=== PATIENT | female | born 1990 | race Caucasian/White ===

== ENCOUNTER 2017-02-19 11:03 | Inpatient (IN) | payer OTHER ==
[2017-02-19 12:55] VITALS: BMI 25.9
--- NOTE | 2017-02-19 17:07 | HP ---
COWS - Scale Resting Pulse: 1= [place] 81-100 Sweatin= Chills/Flushing Restless Observation: 3= Extraneous Movement Pupil Size: 0= Normal to Room Light Bone or Joint Aches: 2= Severe Diffuse Aches Runny Nose/ Eye Tearin= Runny Nose/Eyes GI Upset > 30mins: 2= Nausea/Diarrhea Tremor Observation: 2= Slight Tremor Visible Yawning Observation: 0= None Anxiety or Irritability: 2=Irritable/Anxious Goose Flesh Skin: 0=Smooth Skin COWS Score: 15 Admission [facility] Chief Complaint: WITHDRAWAL SX Allergies/Adverse Reactions: Allergies Allergy/AdvReac Type Severity Reaction Status Date / Time No Known Allergies Allergy Verified 02/19/17 15:58 History of Present Illness: 26 YEARS OLD FEMALE WITH LONG HISTORY OF HEROIN NICOTINE DEPENDENCE DENIES MEDICAL ISSUE HAS DEPRESSION IS ADMITTED TO DETOX Exam Limitations: No Limitations - Ebola screening Have you traveled outside of the country in the last 21 days: No Have you had contact with anyone from an Ebola affected area: No Have you been sick,other than usual withdrawal symptoms: No Do you have a fever: No - Review of Systems Constitutional: Changes in sleep, Weight Stable EENT: reports: No Symptoms Reported Respiratory: reports: No Symptoms reported Cardiac: reports: No Symptoms Reported GI: reports: Nausea, Poor Fluid Intake, Abdominal cramping : reports: No Symptoms Reported Musculoskeletal: reports: Back Pain, Joint Pain, Muscle Pain, Neck Pain Integumentary: reports: Change in Color (BOTH HANDS) Neuro: reports: Tremors Endocrine: reports: No Symptoms Reported Hematology: reports: No Symptoms Reported Psychiatric: reports: Judgement Intact, Orientated x3, Anxious, Depressed Other Systems: Reviewed and Negative Patient History - Patient Medical History Hx Anemia: No Hx Asthma: No Hx Chronic Obstructive Pulmonary Disease (COPD): No Hx Cancer: No Hx Cardiac Disorders: No Hx Congestive Heart Failure: No Hx Hypertension: No Hx Hypercholesterolemia: No Hx Pacemaker: No HX Cerebrovascular Accident: No Hx Seizures: No Hx Dementia: No Hx Diabetes: No Hx Gastrointestinal Disorders: No Hx Liver Disease: No Hx Genitourinary Disorders: No Hx Sexually Transmitted Disorders: No Hx Renal Disease (ESRD): No Hx Thyroid Disease: No Hx Human Immunodeficiency Virus (HIV): No Hx Hepatitis C: No Hx Depression: Yes Hx Suicide Attempt: No Hx Bipolar Disorder: No Hx Schizophrenia: No - Patient Surgical History Past Surgical History: Yes Other Surgical History: Tonsillectomy/adenoidectomy Anesthesia Reaction: No - PPD History Previous Implant?: Yes Documented Results: Negative w/proof Implanted On Prior [facility] Admission?: Yes Date: 11/10/15 PPD to be Administered?: Yes - Reproductive History Patient is a Female of Child Bearing Age (11 -55 yrs old): Yes Last Menstrual Period: 02/19/15 Patient : No - Smoking Cessation Smoking history: Current every day smoker Have you smoked in the past 12 months: Yes Aproximately how many cigarettes per day: 20 Cigars Per Day: 0 Hx Chewing Tobacco Use: No Initiated information on smoking cessation: Yes 'Breaking Loose' booklet given: 02/19/17 - Substance & Tx. History Hx Alcohol Use: No Hx Substance Use: Yes Substance Use Type: Cocaine, Heroin, Marijuana, Tranquilizers Hx Substance Use Treatment: Yes (11/07-11/12/16 [facility] - Substances Abused Heroin Route: Injection Frequency: Daily Amount used: $40 dollar bag Age of first use: 23 Date of Last Use: 02/18/17 Cocaine Route: Inhalation Frequency: 1-3 times last 30 days Amount used: a pinch Age of first use: 23 Date of Last Use: 02/18/17 PCP Route: Injection Frequency: 1-3 times last 30 days Amount used: a pinch Age of first use: 26 Date of Last Use: 02/18/17 Xanax Route: Oral Frequency: 1-3 times last 30 days Amount used: 2 pills Age of first use: 23 Date of Last Use: 02/18/17 Family Disease History - Family Disease History Family Disease History: Diabetes: Father (), Other: Father Admission Physical Exam BHS - Vital Signs Vital Signs: Vital Signs - 24 hr 02/19/17 12:52 Temperature 98 F Pulse Rate 92 H Respiratory 16 Rate Blood Pressure 103/69 - Physical General Appearance: Yes: Nourished, Appropriately Dressed, Mild Distress, Tremorous, Irritable, Sweating, Anxious HEENTM: Yes: Hearing grossly Normal, Normal ENT Inspection, Normocephalic, Normal Voice Respiratory: Yes: Chest Non-Tender, Lungs Clear, Normal Breath Sounds, No Respiratory Distress, No Accessory Muscle Use Neck: Yes: Supple, Trachea in good position Breast: Yes: Breasts Symetrical Cardiology: Yes: Regular Rhythm, S1, S2, Tachycardia Abdominal: Yes: Non Tender, Soft, Increased Bowel Sounds Genitourinary: Yes: Within Normal Limits Back: Yes: Normal Inspection Musculoskeletal: Yes: full range of Motion, Gait Steady, Back pain, Muscle Pain Extremities: Yes: Normal Inspection, Normal Range of Motion, Non-Tender, Tremors Neurological: Yes: Fully Oriented, Alert, Motor Strength 5/5, Normal Response, Depressed Affect Integumentary: Yes: Warm Lymphatic: Yes: Within Normal Limits - Diagnostic (1) Nicotine dependence Current Visit: Yes Status: Acute Qualifiers: Nicotine product type: cigarettes Substance use status: in withdrawal Qualified Code(s): F17.213 - Nicotine dependence, cigarettes, with withdrawal (2) Opioid dependence with withdrawal Current Visit: Yes Status: Acute (3) Skin abrasion Current Visit: Yes Status: Acute (4) Chronic back pain Current Visit: Yes Status: Chronic Qualifiers: Back pain location: low back pain Back pain laterality: bilateral Sciatica presence: without sciatica Qualified Code(s): M54.5 - Low back pain; G89.29 - Other chronic pain (5) Depression with anxiety Current Visit: Yes Status: Suspected Cleared for Admission [facility] - Detox or Rehab [facility] Level of Care: Medically Managed Detox Regimen/Protocol: Methadone [facility] Breath Alcohol Content Breath Alcohol Content: 0 Urine Pregancy Test - Result Urine Test Results: Negative- NO Line Present Urine Drug Screen - Results Drug Screen Negative: No Urine Drug Screen Results: THC-Marijuana, BILL-Cocaine, OPI-Opiates, AMP- Amphetamines, MET-Methamphetamine, MDMA-Ecstasy, BZO-Benzodiazepines, OXY- Oxycodone
[2017-02-19] MEDS ORDERED: ACETAMINOPHEN 325 MG TABLET (FP) PO PRN (17:12)
[2017-02-19] MEDS ORDERED: MAGNESIUM HYDROX 2400MG/30ML ORAL SUSPENSION 30 ML CUP PO PRN (17:12)
[2017-02-19] MEDS ORDERED: P-EPHED 60MG/TRIPROLIDI 2.5MG TABLET PO PRN (17:12)
[2017-02-19] MEDS ORDERED: NICOTINE POLACRILEX 4 MG GUM BC PRN (17:12)
[2017-02-19] MEDS ORDERED: LOPERAMIDE HCL 2 MG CAPSULE PO PRN (17:12)
[2017-02-19] MEDS ORDERED: MENTHOL/PHENOL 1 EACH UD MM PRN (17:12)
[2017-02-19] MEDS ORDERED: MAGNESIUM CITRATE 300 ML BOTTLE PO PRN (17:12)
[2017-02-19] MEDS ORDERED: guaiFENesin/D-METHORPHAN HB 10 ML UNIT-DOSE CUPS PO PRN (17:12)
[2017-02-19] MEDS ORDERED: IBUPROFEN 400 MG TABLET (FP) PO PRN (17:12)
[2017-02-19] MEDS ORDERED: MAG HYDROX/AL HYDROX/SIMETH 30 ML UNIT-DOSE CUP PO PRN (17:12)
[2017-02-19] MEDS ORDERED: METHOCARBAMOL 500 MG TABLET PO PRN (17:17)
[2017-02-19] MEDS ORDERED: BACITRACIN 0.9 GM PACKET TP ONE (18:00)
[2017-02-19] MEDS ORDERED: METHADONE HCL 10 MG TABLET (FOR DETOX USE ONLY) PO ONE ×2 (18:00→23:00)
[2017-02-19] MEDS: diazePAM 5 MG TABLET PO PRN ×2 (18:30→22:39)
[2017-02-19] MEDS: THIAMINE HCL 100 MG TABLET (FP) PO SCH (22:23)
[2017-02-20 01:44] LABS: URINE APPEARANCE TURBID; URINE BILIRUBIN NEGATIVE (NEGATIVE); URINE BLOOD NEGATIVE (NEGATIVE); URINE COLOR YELLOW; URINE GLUCOSE (UA) NEGATIVE (NEGATIVE); URINE KETONE NEGATIVE (NEGATIVE); URINE LEUK ESTERASE TRACE (NEGATIVE); URINE NITRITE NEGATIVE (NEGATIVE)
[2017-02-20 01:48] LABS: URINE PROTEIN 1+ (NEGATIVE)
[2017-02-20 01:58] LABS: URINE BACTERIA MANY /hpf (NONE SEEN); URINE MUCUS MANY; URINE WBC 11 /hpf (3-5)
--- NOTE | 2017-02-20 08:01 | CONSULT ---
[facility] Psychiatric Consult - Data Date of interview: 02/20/17 Admission source: [facility] Identifying data: This is 26 years old female with no psychiatric hospitalization history intoxicated with: Opioids, Cannabis, Nicotine Substance Abuse History: - Smoking Cessation. Smoking history: Current every day smoker. Have you smoked in the past 12 months: Yes. Aproximately how many cigarettes per day: 20. Cigars Per Day: 0. Hx Chewing Tobacco Use: No. Initiated information on smoking cessation: Yes. 'Breaking Loose' booklet given : 02/19/17. - Substance & Tx. History. Hx Alcohol Use: No. Hx Substance Use: Yes. Substance Use Type: Cocaine, Heroin, Marijuana, Tranquilizers. Hx Substance Use Treatment: Yes (11/07-11/12/16 [facility]). - Substances Abused. * * Heroin. Route: Injection. Frequency: Daily. Amount used: $40 dollar bag. Age of first use: 23. Date of Last Use: 02/18/17. Cocaine. Route: Inhalation. Frequency: 1-3 times last 30 days. Amount used: a pinch. Age of first use: 23. Date of Last Use: 02/18/17. PCP. Route: Injection. Frequency: 1-3 times last 30 days. Amount used: a pinch. Age of first use: 26. Date of Last Use: 02/18/17. Xanax. Route: Oral. Frequency: 1-3 times last 30 days. Amount used: 2 pills. Age of first use: 23. Date of Last Use: 02/18/17 Medical History: LBP, UTI history Psychiatric History: Patient reports [id number] of depression and anxiety, denies suicidal histrory , motivated to start antidepressants at rehabilitatyion unit Physical/Sexual Abuse/Trauma History: Denies Additional Comment: Observation. Detox unit care protocol Mental Status Exam - Mental Status Exam Alert and Oriented to: Person Cognitive Function: Fair Patient Appearance: Unkempt Mood: Sad Affect: Flat Patient Behavior: Sedated Speech Pattern: Delayed Voice Loudness: Mildly Soft/Quiet Thought Process: Circumstantial Thought Disorder: Being Controlled Hallucinations: Denies Suicidal Ideation: Denies Homicidal Ideation: Denies Insight/Judgement: Fair Sleep: Difficulty falling asleep Appetite: Fair Muscle strength/Tone: Mild Hypotonicity Gait/Station: Shuffling Additional Comments: Observation. Detox unit care protocol Psychiatric Findings - Problem List ([place] 1, 2,3) (1) Nicotine dependence Current Visit: Yes Status: Acute Qualifiers: Nicotine product type: cigarettes Substance use status: in withdrawal Qualified Code(s): F17.213 - Nicotine dependence, cigarettes, with withdrawal (2) Opioid dependence with withdrawal Current Visit: Yes Status: Acute (3) Depression with anxiety Current Visit: Yes Status: Suspected (4) Cannabis abuse Current Visit: No Status: Chronic (5) Drug-induced mood disorder Current Visit: No Status: Suspected - Initial Treatment Plan Initial Treatment Plan: Observation. Detox unit care protocol
--- NOTE | 2017-02-20 09:52 | EKG ---
Test Reason : Blood Pressure : / mmHG Vent. Rate : 085 BPM Atrial Rate : 085 BPM P-R Int : 180 ms QRS Dur : 082 ms QT Int : 354 ms P-R-T Axes : 015 040 018 degrees QTc Int : 421 ms NORMAL SINUS RHYTHM NORMAL ECG NO PREVIOUS ECGS AVAILABLE Confirmed by KHUSHBOO JACQUES, KARIN ([id number]) on 02/20/2017 9:52:10 AM Referred By: Confirmed By:KARIN CUELLO MD
[2017-02-20] MEDS ORDERED: METHADONE HCL 10 MG TABLET (FOR DETOX USE ONLY) PO ONE (10:00)
[2017-02-20 10:06] LABS: MCH 24.5 pg (25.7-33.7); MCHC 32.6 g/dl (32.0-36.0); MEAN CELL VOLUME 75.2 fl (80-96); MEAN PLT VOLUME 7.4 fl (7.5-11.1); PLATELET COUNT 182 K/MM3 (134-434); RDW 15.4 % (11.6-15.6); WHITE BLOOD COUNT 3.5 K/mm3 (4.0-10.0)
[2017-02-20] MEDS: PRENATAL VITAMINS W/ FOLIC ACID TABLET (FP) PO SCH (10:29)
[2017-02-20] MEDS: LIDOCAINE 5% TOPICAL PATCH TP SCH (10:30)
[2017-02-20] MEDS: NICOTINE 21 MG/24 HOURS TOPICAL PATCH TD SCH (10:30)
[2017-02-20] MEDS: diazePAM 5 MG TABLET PO PRN ×3 (10:32→20:40)
--- NOTE | 2017-02-20 10:58 | PN ---
BHS COWS - Scale Resting Pulse: 0= [place] 80 or Below Sweatin= Chills/Flushing Restless Observation: 3= Extraneous Movement Pupil Size: 1= Pupils >than Normal Bone or Joint Aches: 2= Severe Diffuse Aches Runny Nose/ Eye Tearin= Runny Nose/Eyes GI Upset > 30mins: 3= Vomiting/Diarrhea Tremor Observation of Outstretched Hands: 2= Slight Tremor Visible Yawning Observation: 1= 1-2x During Session Anxiety or Irritability: 2=Irritable/Anxious Goose Flesh Skin: 0=Smooth Skin COWS Score: 17 BHS Progress Note (SOAP) Subjective: ALERT,IRRITABLE,ANXIOUS,INTERRUPTED SLEEP,TREMOR Objective: 02/20/17 10:56 Vital Signs Temperature 98.3 F 02/20/17 10:34 Pulse Rate 73 02/20/17 10:34 Respiratory Rate 16 02/20/17 10:34 Blood Pressure 120/80 02/20/17 10:34 O2 Sat by Pulse Oximetry (%) EKG NSR,NORMAL ECG Laboratory Last Values WBC 3.5 K/mm3 (4.0-10.0) L 02/20/17 07:00 RBC 4.62 M/mm3 (3.60-5.2) 02/20/17 07:00 Hgb 11.3 GM/dL (10.7-15.3) 02/20/17 07:00 Hct 34.8 % (32.4-45.2) 02/20/17 07:00 MCV 75.2 fl (80-96) L 02/20/17 07:00 MCH 24.5 pg (25.7-33.7) L 02/20/17 07:00 MCHC 32.6 g/dl (32.0-36.0) 02/20/17 07:00 RDW 15.4 % (11.6-15.6) D 02/20/17 07:00 Plt Count 182 K/MM3 (134-434) 02/20/17 07:00 MPV 7.4 fl (7.5-11.1) L 02/20/17 07:00 Urine Color Yellow 02/19/17 23:21 Urine Appearance Turbid 02/19/17 23:21 Urine pH 5.0 (5.0-8.0) 02/19/17 23:21 Ur Specific [place] >= 1.030 (1.005-1.025) H 02/19/17 23:21 Urine Protein 1+ (NEGATIVE) H 02/19/17 23:21 Urine Glucose (UA) Negative (NEGATIVE) 02/19/17 23:21 Urine Ketones Negative (NEGATIVE) 02/19/17 23:21 Urine Blood Negative (NEGATIVE) 02/19/17 23:21 Urine Nitrite Negative (NEGATIVE) 02/19/17 23:21 Urine Bilirubin Negative (NEGATIVE) 02/19/17 23:21 Urine Urobilinogen 2.0 mg/dL (0.2-1.0) H 02/19/17 23:21 Urine RBC None /hpf (0-3) 02/19/17 23:21 Urine WBC 11 /hpf (3-5) 02/19/17 23:21 Ur Epithelial Cells Few /hpf (FEW) 02/19/17 23:21 Urine Bacteria Many /hpf (NONE SEEN) 02/19/17 23:21 Urine Mucus Many 02/19/17 23:21 LABS PENDING Assessment: 02/20/17 10:57 WITHDRAWAL SYMPTOM Plan: CONTINUE DETOX
[2017-02-20 11:25] LABS: ALBUMIN 2.8 g/dl (3.4-5.0); ALK PHOS 463 U/L (45-117); ANION GAP 8 (8-16); BILIRUBIN,TOTAL 0.8 mg/dL (0.2-1.0); CALCIUM 8.7 mg/dL (8.5-10.1); CO2 29 mmol/L (21-32); CREATININE 0.6 mg/dL (0.55-1.02); GLUCOSE,RANDOM 86 mg/dL (74-106); SGOT/AST 32 U/L (15-37); SGPT/ALT 26 U/L (12-78); TOT PROT 6.9 g/dl (6.4-8.2)
[2017-02-20] MEDS: THIAMINE HCL 100 MG TABLET (FP) PO SCH (22:15)
[2017-02-20] MEDS: cloNIDine HCL 0.1 MG TABLET PO SCH (22:15)
[2017-02-20] MEDS: diphenhydrAMINE HCL 50 MG CAPSULE PO PRN (22:16)
[2017-02-20] MEDS: LIDOCAINE PATCH REMOVAL MC SCH (22:16)
[2017-02-21] MEDS ORDERED: METHADONE HCL 5 MG TABLET (FOR DETOX USE ONLY) PO ONE (10:00)
[2017-02-21] MEDS: cloNIDine HCL 0.1 MG TABLET PO SCH ×2 (10:24→22:22)
[2017-02-21] MEDS: PRENATAL VITAMINS W/ FOLIC ACID TABLET (FP) PO SCH (10:24)
[2017-02-21] MEDS: LIDOCAINE 5% TOPICAL PATCH TP SCH (10:26)
[2017-02-21] MEDS: NICOTINE 21 MG/24 HOURS TOPICAL PATCH TD SCH (10:26)
[2017-02-21] MEDS: diazePAM 5 MG TABLET PO PRN ×2 (10:28→17:42)
--- NOTE | 2017-02-21 10:29 | PN ---
BHS COWS - Scale Resting Pulse: 0= [place] 80 or Below Sweatin= Chills/Flushing Restless Observation: 3= Extraneous Movement Pupil Size: 1= Pupils >than Normal Bone or Joint Aches: 2= Severe Diffuse Aches Runny Nose/ Eye Tearin= Runny Nose/Eyes GI Upset > 30mins: 2= Nausea/Diarrhea Tremor Observation of Outstretched Hands: 2= Slight Tremor Visible Yawning Observation: 1= 1-2x During Session Anxiety or Irritability: 2=Irritable/Anxious Goose Flesh Skin: 0=Smooth Skin COWS Score: 16 S Progress Note (SOAP) Subjective: ALERT,IRRITABLE,ANXIOUS,INTERRUPTED SLEEP,PAIN IN THE BOD AND BACK,INTERRUPTED SLEEP Objective: 02/21/17 10:28 Vital Signs Temperature 97.3 F L 02/21/17 06:24 Pulse Rate 62 02/21/17 06:24 Respiratory Rate 16 02/21/17 06:24 Blood Pressure 91/66 02/21/17 06:24 O2 Sat by Pulse Oximetry (%) Laboratory Last Values WBC 3.5 K/mm3 (4.0-10.0) L 02/20/17 07:00 RBC 4.62 M/mm3 (3.60-5.2) 02/20/17 07:00 Hgb 11.3 GM/dL (10.7-15.3) 02/20/17 07:00 Hct 34.8 % (32.4-45.2) 02/20/17 07:00 MCV 75.2 fl (80-96) L 02/20/17 07:00 MCH 24.5 pg (25.7-33.7) L 02/20/17 07:00 MCHC 32.6 g/dl (32.0-36.0) 02/20/17 07:00 RDW 15.4 % (11.6-15.6) D 02/20/17 07:00 Plt Count 182 K/MM3 (134-434) 02/20/17 07:00 MPV 7.4 fl (7.5-11.1) L 02/20/17 07:00 Sodium 140 mmol/L (136-145) 02/20/17 07:00 Potassium 4.1 mmol/L (3.5-5.1) 02/20/17 07:00 Chloride 103 mmol/L (98-107) 02/20/17 07:00 Carbon Dioxide 29 mmol/L (21-32) 02/20/17 07:00 Anion Gap 8 (8-16) 02/20/17 07:00 BUN 5 mg/dL (7-18) L D 02/20/17 07:00 Creatinine 0.6 mg/dL (0.55-1.02) D 02/20/17 07:00 Creat Clearance w eGFR > 60 (>60) 02/20/17 07:00 Random Glucose 86 mg/dL (74-106) 02/20/17 07:00 Calcium 8.7 mg/dL (8.5-10.1) 02/20/17 07:00 Total Bilirubin 0.8 mg/dL (0.2-1.0) D 02/20/17 07:00 AST 32 U/L (15-37) D 02/20/17 07:00 ALT 26 U/L (12-78) D 02/20/17 07:00 Alkaline Phosphatase 463 U/L (45-117) H D 02/20/17 07:00 Total Protein 6.9 g/dl (6.4-8.2) 02/20/17 07:00 Albumin 2.8 g/dl (3.4-5.0) L D 02/20/17 07:00 Urine Color Yellow 02/19/17 23:21 Urine Appearance Turbid 02/19/17 23:21 Urine pH 5.0 (5.0-8.0) 02/19/17 23:21 Ur Specific [place] >= 1.030 (1.005-1.025) H 02/19/17 23:21 Urine Protein 1+ (NEGATIVE) H 02/19/17 23:21 Urine Glucose (UA) Negative (NEGATIVE) 02/19/17 23:21 Urine Ketones Negative (NEGATIVE) 02/19/17 23:21 Urine Blood Negative (NEGATIVE) 02/19/17 23:21 Urine Nitrite Negative (NEGATIVE) 02/19/17 23:21 Urine Bilirubin Negative (NEGATIVE) 02/19/17 23:21 Urine Urobilinogen 2.0 mg/dL (0.2-1.0) H 02/19/17 23:21 Urine RBC None /hpf (0-3) 02/19/17 23:21 Urine WBC 11 /hpf (3-5) 02/19/17 23:21 Ur Epithelial Cells Few /hpf (FEW) 02/19/17 23:21 Urine Bacteria Many /hpf (NONE SEEN) 02/19/17 23:21 Urine Mucus Many 02/19/17 23:21 RPR Titer Nonreactive (NONREACTIVE) 02/20/17 07:00 Hepatitis C Antibody <0.1 s/co ratio (0.0-0.9) 02/19/17 07:00 Assessment: 02/21/17 10:29 WITHDRAWAL SYMPTOM Plan: CONTINUE DETOX
[2017-02-21 12:20] LABS: HIV 1 & 2 AB NEGATIVE; HIV 1 AGp24 NEGATIVE
[2017-02-21] MEDS: diphenhydrAMINE HCL 50 MG CAPSULE PO PRN (22:22)
[2017-02-21] MEDS: THIAMINE HCL 100 MG TABLET (FP) PO SCH (22:22)
[2017-02-21] MEDS: LIDOCAINE PATCH REMOVAL MC SCH (22:25)
[2017-02-22] MEDS: diazePAM 5 MG TABLET PO PRN ×2 (05:13→10:28)
[2017-02-22] MEDS ORDERED: METHADONE HCL 10 MG TABLET (FOR DETOX USE ONLY) PO ONE (09:56)
[2017-02-22] MEDS ORDERED: METHADONE HCL 5 MG TABLET (FOR DETOX USE ONLY) PO ONE (10:00)
[2017-02-22] MEDS: NICOTINE 21 MG/24 HOURS TOPICAL PATCH TD SCH (10:28)
[2017-02-22] MEDS: PRENATAL VITAMINS W/ FOLIC ACID TABLET (FP) PO SCH (10:28)
[2017-02-22] MEDS: cloNIDine HCL 0.1 MG TABLET PO SCH ×2 (10:28→23:06)
--- NOTE | 2017-02-22 10:46 | PN ---
S Progress Note (SOAP) Subjective: alert,irritable,anxious,interrupted sleep Objective: 02/22/17 10:45 Vital Signs Temperature 97.7 F 02/22/17 06:00 Pulse Rate 69 02/22/17 06:00 Respiratory Rate 18 02/22/17 06:00 Blood Pressure 111/62 02/22/17 06:00 O2 Sat by Pulse Oximetry (%) Assessment: 02/22/17 10:45 withdrawal symptom Plan: continue detox,discharge in am
[2017-02-22] MEDS: LIDOCAINE 5% TOPICAL PATCH TP SCH (12:32)
[2017-02-22] MEDS: diphenhydrAMINE HCL 50 MG CAPSULE PO PRN (22:20)
[2017-02-22] MEDS: THIAMINE HCL 100 MG TABLET (FP) PO SCH (22:20)
[2017-02-22] MEDS: LIDOCAINE PATCH REMOVAL MC SCH (23:06)
[2017-02-23] MEDS ORDERED: METHADONE HCL 5 MG TABLET (FOR DETOX USE ONLY) PO ONE (06:00)
--- NOTE | 2017-02-23 08:29 | DS ---
[facility] Detox Discharge Summary Admission Date: 02/19/17 Discharge Date: 02/23/17 - History Present History: Opioid Dependence Additional Comments: FOLLOW UP WITH AFTER CARE PROGRAM ARRANGEMENT Pertinent Past History: NICOTINE DEPENDENCE CHRONIC BACK PAIN ANXIETY AND DEPRESSION - Physical Exam Results Vital Signs: Vital Signs Temperature 97.2 F L 02/23/17 06:25 Pulse Rate 64 02/23/17 06:25 Respiratory Rate 18 02/23/17 06:25 Blood Pressure 117/68 02/23/17 06:25 O2 Sat by Pulse Oximetry (%) Pertinent Admission Physical Exam Findings: WITHDRAWAL SYMPTOM - Treatment Hospital Course: Detox Protocol Followed, Detoxed Safely, Responded well, Discharged Condition Good Patient has Accepted a Rehab Referral to: DECLINED - Medication Discharge Medications: Ambulatory Orders Quetiapine Fumarate [Seroquel -] 50 mg PO HS 02/20/17 Zolpidem Tartrate [Ambien] 10 mg PO HS PRN 02/20/17 - Diagnosis (1) Opioid dependence with withdrawal Current Visit: Yes Status: Acute (2) Chronic back pain Current Visit: Yes Status: Chronic Qualifiers: Back pain location: low back pain Back pain laterality: bilateral Sciatica presence: without sciatica Qualified Code(s): M54.5 - Low back pain; G89.29 - Other chronic pain (3) Nicotine dependence Current Visit: Yes Status: Acute Qualifiers: Nicotine product type: cigarettes Substance use status: in withdrawal Qualified Code(s): F17.213 - Nicotine dependence, cigarettes, with withdrawal (4) Depression with anxiety Current Visit: Yes Status: Suspected - AMA Did Patient Leave Against Medical Advice: No
[2017-02-23] MEDS: PRENATAL VITAMINS W/ FOLIC ACID TABLET (FP) PO SCH (09:26)
[2017-02-23] MEDS: cloNIDine HCL 0.1 MG TABLET PO SCH (09:26)
[2017-02-23] MEDS ORDERED: METHADONE HCL 10 MG TABLET (FOR DETOX USE ONLY) PO ONE (10:00)
[2017-02-23 10:33] VITALS: BP 100/62; PULSE 62; TEMP 97.5
[2017-02-24] MEDS ORDERED: METHADONE HCL 5 MG TABLET (FOR DETOX USE ONLY) PO ONE (06:00)
== END 2017-02-23 09:42 | disposition home or self-care (01) | DRG 773 ==
LOC: YASAS 11:03 → Y6N 17:30
PROVIDERS: ADMIT Internal Medicine; ATTEND Internal Medicine
PROC: HZ2ZZZZ Detoxification Services for Substance Abuse Treatment (ICD-10-PCS; principal; 2017-02-19)
DX: F11.23 Opioid dependence with withdrawal (principal); F12.10 Cannabis abuse, uncomplicated; F17.210 Nicotine dependence, cigarettes, uncomplicated; F19.24 Other psychoactive substance dependence with psychoactive substance-induced mood disorder; F41.8 Other specified anxiety disorders; M54.5 Low back pain; G89.29 Other chronic pain
CPT/HCPCS: 36415; 80053; 81003; 81015; 85027; 86593; 86803; 87389; 93005; 93010